=== PATIENT | female | born 1980 | race Two or more races ===

== ENCOUNTER 2018-07-10 08:10 | Emergency (ER) | payer OTHER, BC ==
[~2018-07-10] VITALS: Ht 170.2 cm; Wt 112.0 kg
[2018-07-10 08:31] VITALS: BP 125/82
[2018-07-10] MEDS ORDERED: ACETAMINOPHEN 500 MG TAB PO ONE (09:00)
== END 2018-07-10 09:52 | disposition home or self-care (01) ==
LOC: ER 08:23
DX: S16.1XXA Strain of muscle, fascia and tendon at neck level, initial encounter (principal); S20.219A Contusion of unspecified front wall of thorax, initial encounter; Z88.0 Allergy status to penicillin; Z88.2 Allergy status to sulfonamides; V43.52XA Car driver injured in collision with other type car in traffic accident, initial encounter; Y93.89 Activity, other specified; Y99.8 Other external cause status; Y92.410 Unspecified street and highway as the place of occurrence of the external cause
CPT/HCPCS: 71046; 72040

== ENCOUNTER 2019-03-27 23:39 | Emergency (ER) | payer OTHER, BC ==
[~2019-03-27] VITALS: Ht 170.2 cm; Wt 111.1 kg
[2019-03-27 23:58] VITALS: BP 134/90
== END 2019-03-28 00:16 | disposition left against medical advice (07) ==
LOC: ER 23:39
DX: R42 Dizziness and giddiness (principal); R25.1 Tremor, unspecified; Z53.21 Procedure and treatment not carried out due to patient leaving prior to being seen by health care provider
CPT/HCPCS: 82962